=== PATIENT | female | born 1945 | race Caucasian/White ===

== ENCOUNTER → 2016-09-01 | Outpatient (CLI) | payer MEDICARE, OTHER ==
[~2016-09-01] MED LIST: ALEVE220 MG PO; ASA325 MG PO; AUGMENTIN 250250 MG PO; BENADRYL-DPS25 MG PO; CALCIUM + VITA1 EACH PO; DAILY MULTIPLE1 EAC1 PO; DELTASONE DPS10 MG PO; DUONEB DPS3 ML PO; NORTHERA100 MG PO; PYRIDOSTIGMINE60 MG PO; TESSALON PERLE100 M1 PO; VITAMIN D35000 UNI1 PO
== END | disposition home or self-care (01) ==
LOC: RAD.S 08-18 09:50
DX: Z12.31 Encounter for screening mammogram for malignant neoplasm of breast (principal)

== ENCOUNTER 2016-10-23 10:51 | Emergency (ER) | payer MEDICARE, OTHER ==
--- NOTE | 2016-10-30 16:11 | ER ---
ADMIT: 10/23/2016 RM/LOC: ER [facility] MR#: [id number] [facility] [address] [place] [id number] JAILYN JUNIOR [address] [place] [address] Emergency Room Report SEX: F AGE: 71 : 1945 DATE: 10/23/2016 ADDENDUM: A 71-year-old, white female coming in after injuring her right knee. X-ray was negative. We treated her as a contusion, and then follow up as needed. CONDITION ON DISCHARGE: Good. River Gastelum MD/ fer JOB #: [id number] CC: River Gastelum MD, Attending Physician Tammy Madera MD, Family Physician
[2017-02-12] MEDS ORDERED: ALEVE220 MG PO (14:30)
[2017-02-12] MEDS ORDERED: ASA325 MG PO (14:30)
[2017-02-12] MEDS ORDERED: BENADRYL-DPS25 MG PO (14:30)
[2017-02-12] MEDS ORDERED: CALCIUM + VITA1 EACH PO (14:31)
[2017-02-12] MEDS ORDERED: TESSALON PERLE100 M1 PO (14:31)
[2017-02-12] MEDS ORDERED: NORTHERA100 MG PO (14:31)
[2017-02-12] MEDS ORDERED: DAILY MULTIPLE1 EAC1 PO (14:31)
[2017-02-12] MEDS ORDERED: DELTASONE DPS10 MG PO (14:32)
[2017-02-12] MEDS ORDERED: PYRIDOSTIGMINE60 MG PO (14:32)
[2017-02-12] MEDS ORDERED: VITAMIN D35000 UNI1 PO (14:32)
[2017-02-12] MEDS ORDERED: AUGMENTIN 250250 MG PO (14:33)
[2017-02-12] MEDS ORDERED: DUONEB DPS3 ML PO (14:33)
== END 2016-10-23 13:47 | disposition home or self-care (01) ==
LOC: ER 10:51
DX: S80.02XA Contusion of left knee, initial encounter (principal); Z79.82 Long term (current) use of aspirin; Z79.899 Other long term (current) drug therapy; W18.30XA Fall on same level, unspecified, initial encounter; Y92.009 Unspecified place in unspecified non-institutional (private) residence as the place of occurrence of the external cause